=== PATIENT | male | born 1990 | race African-American/Black ===

== ENCOUNTER 2019-02-24 23:41 | Emergency (ER) | payer OTHER ==
[2019-02-25 00:24] VITALS: BP 126/78; PULSE 100; TEMP 99.4; BMI 43.7
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
== END 2019-02-25 01:51 | disposition home or self-care (01) ==
LOC: JER 23:41
DX: T14.8XXA Other injury of unspecified body region, initial encounter (principal); Z56.9 Unspecified problems related to employment; Y08.89XA Assault by other specified means, initial encounter; Y93.89 Activity, other specified; Y92.89 Other specified places as the place of occurrence of the external cause; Y99.0 Civilian activity done for income or pay
CPT/HCPCS: 99281-25